=== PATIENT | male | born 1970 | race American Indian/Alaskan Native ===

== ENCOUNTER 2020-12-28 14:03 | Emergency (ER) | payer OTHER ==
[~2020-12-28] VITALS: Ht 160 cm; Wt 65.8 kg
[~2020-12-28 14:03] MED LIST: DDAVP 0.0110 MCG/0.1 NAS
== END 2020-12-28 15:11 | disposition home or self-care (01) ==
LOC: ED 14:03
DX: S63.613A Unspecified sprain of left middle finger, initial encounter (principal); W01.198A Fall on same level from slipping, tripping and stumbling with subsequent striking against other object, initial encounter; F17.200 Nicotine dependence, unspecified, uncomplicated; Z79.899 Other long term (current) drug therapy
CPT/HCPCS: 73130; 99283-25

== ENCOUNTER 2021-09-19 21:37 | Emergency (ER) | payer OTHER ==
[~2021-09-19] VITALS: Ht 160 cm; Wt 55.3 kg
== END 2021-09-20 00:43 | disposition home or self-care (01) ==
LOC: ED 21:37
DX: M79.10 Myalgia, unspecified site (principal); F17.200 Nicotine dependence, unspecified, uncomplicated; Z79.899 Other long term (current) drug therapy
CPT/HCPCS: 80053; 81001; 85025; 99283

== ENCOUNTER 2021-10-27 22:07 | Emergency (ER) | payer OTHER ==
[~2021-10-27] VITALS: Ht 160 cm; Wt 61.2 kg
[2021-10-27] MEDS ORDERED: MULTI VITAMIN1 EACH PO (22:21)
[2021-10-28] MEDS ORDERED: POTASSIUM CHLO10 MEQ PO (00:06)
[2021-10-28] MEDS ORDERED: ZOFRAN4 MG PO (00:06)
== END 2021-10-28 00:20 | disposition home or self-care (01) ==
LOC: ED 22:07
DX: K52.9 Noninfective gastroenteritis and colitis, unspecified (principal); E87.6 Hypokalemia; Z20.822 Contact with and (suspected) exposure to COVID-19; F17.200 Nicotine dependence, unspecified, uncomplicated
CPT/HCPCS: 80053; 81001; 83690; 85025; 96374; 99284-25; A9270; C9803; J2405; J7030; U0003